=== PATIENT | male | born 1960 | race Caucasian/White ===

== ENCOUNTER 2016-04-16 14:20 | Emergency (ER) | payer SELFPAY ==
--- NOTE | 2016-04-17 07:01 | RAD ---
LEFT SHOULDER THREE VIEWS 04/16/2016 FINDINGS: No fracture, dislocation, or AC joint widening was seen. All bones appear intact. The adjacent eyal g is clear. The visible adjacent ribs appeared intact. IMPRESSION: No acute findings POS: HOME
--- NOTE | 2016-04-17 07:03 | RAD ---
LEFT ELBOW FOUR VIEWS 04/16/2016 There is evidence of old trauma to the elbow, particularly involving the coronoid process of the uln a and the medial side of the joint. There is a little irregularity of the radial head that is proba maria isabel due to old trauma as well. The lateral view does not show a large joint effusion, so I feel all of the findings are most likely old, rather than new. IMPRESSION: Evidence of old trauma but no convincing changes of acute fracture. POS: HOME
--- NOTE | 2016-04-17 07:05 | RAD ---
RIGHT MIDDLE FINGER 04/16/2016 Three views show a fracture at the base of the middle phalanx, volar surface, bordering the PIP join t. There is no significant displacement. IMPRESSION: Fracture at the base of the middle phalanx. POS: HOME
--- NOTE | 2016-04-17 07:06 | CT ---
CT OF THE BRAIN WITHOUT CONTRAST: Date: 04/16/[address] was done following trauma. The ventricles are normal in size with no shift. No intracranial bleeding or extra-axial hematoma wa s appreciated. No mass or stroke was found. A short white streak seen in the right frontal region me dially is thought more likely to be artifact than subarachnoid bleeding. The calvarium appears intac t with no sign of fracture. There is extensive mucosal thickening in the ethmoid sinuses bilaterally and there is a small air fluid level in the visible portions of the right maxillary sinus. The mast oid air cells are clear. The sphenoid sinus is clear. IMPRESSION: 1. No acute intracranial findings. 2. Bilateral ethmoid mucosal thickening and small air fluid level in the right maxillary sinus. The latter could be due to sinusitis, though if there were facial trauma, then additional studies would be needed to rule out that as a cause. POS: HOME
--- NOTE | 2016-04-17 07:12 | CT ---
CT OF THE CERVICAL SPINE: Date: 04/16/[address] of the cervical spine was performed following trauma. Axial slices were acquired, then cor onal and sagittal reconstructions were done. FINDINGS: No fracture, dislocation, or soft tissue swelling was appreciated. There is straightening of the cervical spine. A prior anterior cervical fusion of C6-C7 is noted whi ch has a normal postoperative appearance. Findings by level follow: C1-C2: No acute findings. C2-C3: No acute findings. C3-C4: There is mild concentric bulge of the disc. The AP diameter of the spinal canal at this level is red uced due to the bulging disc down to about 7 mm. C4-C5: No acute findings. C5-C6: The PA diameter of the canal is slightly reduced, due to osteophytes, to 8-9 mm. The foramina seem patent. C6-C7: This is the level of the anterior cervical fusion. The foramina are patent. C7-T1: Artifact obscures fine detail. No gross acute findings. T1-T1: No gross acute findings. Lung apices are clear. No pneumothorax was seen. IMPRESSION: 1. Loss of cervical lordosis, but no acute findings otherwise. 2. Significant spinal stenosis at C3-C4 and to a slightly lesser degree at C5-C6. POS: HOME
--- NOTE | 2016-04-17 07:37 | CT ---
CT OF THE LUMBAR SPINE: DATE: 04/16/16. FINDINGS: Spiral CT of the lumbar spine was performed following trauma. Axial slices were acquired, then danny nal and sagittal reconstructions were done. There is disk space narrowing at L1-L2. No fracture or dislocation was appreciated at any level. T he facet joints showed no perched facets or other traumatic change. Findings by level follow: T11-T12: No acute findings. T12-L1: No acute findings. Mild facet arthritis. L1-L2: No acute findings. L2-L3: Some posterior osteophytes that slightly efface the thecal sac. AP diameter of the canal at this level is still 1.2 cm, which should be adequate. There is no foraminal narrowing. L3-L4: Mild concentric bulge of the disk without significant stenosis. L4-L5: Mild concentric bulge of the disk. Some facet overgrowth, but no real foraminal or spinal s tenosis. L5-S1: Mild concentric bulge of the disk. The disk could barely touch the exiting L5 root on the l eft. There is facet overgrowth, but no spinal stenosis. IMPRESSION: Degenerative changes as noted without any acute traumatic changes. POS: HOME
== END 2016-04-16 17:00 | disposition home or self-care (01) ==
LOC: BURERS 14:20
DX: S51.012A Laceration without foreign body of left elbow, initial encounter (principal); S61.312A Laceration without foreign body of right middle finger with damage to nail, initial encounter; S40.012A Contusion of left shoulder, initial encounter; S09.90XA Unspecified injury of head, initial encounter; M48.02 Spinal stenosis, cervical region; W17.89XA Other fall from one level to another, initial encounter
CPT/HCPCS: 12002; 70450; 72125; 72131; Q4049

== ENCOUNTER 2016-04-26 06:49 | Emergency (ER) | payer SELFPAY ==
[2016-04-26] MEDS ORDERED: Bacitracin Zinc 1 Packet ONE (07:09)
== END 2016-04-26 07:21 | disposition home or self-care (01) ==
LOC: BURERS 06:49
DX: S51.012D Laceration without foreign body of left elbow, subsequent encounter (principal); X58.XXXD Exposure to other specified factors, subsequent encounter
CPT/HCPCS: 99283

== ENCOUNTER 2018-05-05 09:39 | Emergency (ER) | payer OTHER ==
[2018-05-05] MEDS ORDERED: HYDROcodone/Acetaminophen 10/325 mg Tablet ONE (09:57)
[2018-05-05] MEDS ORDERED: Ketorolac Tromethamine 30 MG/ML VIAL ONE (09:57)
--- NOTE | 2018-05-05 10:33 | CT ---
CT BRAIN WITHOUT CONTRAST: COMPARISON: 07/01/2016. HISTORY: Headache and neck pain. TECHNIQUE: Multiple contiguous axial images were obtained in a CT of the brain without contrast. FINDINGS: The brain is normal in morphology and attenuation without focal lesions or confluent areas of infarct ion. There is no evidence of hydrocephalus, intracranial hemorrhage, or extraaxial fluid collection. The calvarium and overlying soft tissues are unremarkable. The visualized paranasal sinuses and masto id air cells are well aerated. IMPRESSION: No evidence of acute intracranial abnormality. POS: [facility]
--- NOTE | 2018-05-05 10:43 | CT ---
CT OF THE CERVICAL SPINE WITHOUT CONTRAST: COMPARISON: 07/01/2016. HISTORY: Headache and neck pain. TECHNIQUE: Multiple contiguous axial images were obtained in a CT of the cervical spine without contrast. Sagit abhinav and coronal reformats were performed. FINDINGS: The patient is status post anterior fusion of C6 and C7. There is wedging of the C5 vertebral body w ith ventral displacement of the distal vertebral body in relation to the other cervical vertebral bod ies. This is unchanged compared to the prior examination. There is no evidence of acute fracture or subluxation. No prevertebral soft tissue swelling is seen. The posterior facets are fused at C4-5 and facets that are fused appear perched. IMPRESSION: No evidence of acute osseous abnormality of the cervical spine. POS: [facility]
[2018-05-05] MEDS ORDERED: Dexamethasone 4 MG TAB ONE (11:03)
== END 2018-05-05 10:09 | disposition home or self-care (01) ==
LOC: BURERS 09:39
DX: S12.400A Unspecified displaced fracture of fifth cervical vertebra, initial encounter for closed fracture (principal); M50.920 Unspecified cervical disc disorder, mid-cervical region, unspecified level; R51 Headache; X58.XXXA Exposure to other specified factors, initial encounter
CPT/HCPCS: 70450; 72125; 96372; J1885; J8540